=== PATIENT | male | born 1955 | race Caucasian/White ===

== ENCOUNTER 2016-09-12 08:03 | Day surgery (SDC) | payer OTHER ==
[~2016-09-12 08:03] MED LIST: CEFAZOLIN 2 GM/D5W RTU 2 GM/50 ML RTUPB IV PRN; LACTATED RINGERS 1000 ML IV PRN; LIDOCAINE 0.5% INJ-PF (5 MG/ML) 50 ML SDV SUBCUT PRN
[2016-09-12] MEDS ORDERED: BUPIVACAINE HCL 0.25 % INJ/PF (2.5 MG/1 ML) 30 ML VIAL ONE (09:17)
[2016-09-12] MEDS ORDERED: FENTANYL CITRATE INJ/PF 250 MCG/5 ML AMPULE ONE (10:18)
[2016-09-12] MEDS ORDERED: PROPOFOL INJ 200 MG/20 ML VIAL IV ONE ×2 (10:18→13:26)
[2016-09-12] MEDS ORDERED: MIDAZOLAM 2 MG/2 ML INJ ONE (10:18)
[2016-09-12] MEDS ORDERED: MORPHINE SULFATE 10 MG/ML INJ IV PRN ×2 (10:58→11:58)
[2016-09-12] MEDS ORDERED: PROMETHAZINE HCL INJ 25 MG/1 ML VIAL IV PRN ×2 (10:58)
[2016-09-12] MEDS ORDERED: OXYCODONE-ACETAMINOPHEN 5-325 MG TABLET PO PRN ×2 (10:58)
[2016-09-12] MEDS ORDERED: DIPHENHYDRAMINE HCL 50 MG/ML VIAL IV PRN (10:58)
[2016-09-12] MEDS ORDERED: MEPERIDINE HCL/PF INJ 25 MG/1 ML DISP.SYRIN IV PRN (10:58)
[2016-09-12] MEDS ORDERED: FENTANYL CITRATE INJ/PF 100 MCG/2 ML AMPUL IV PRN ×3 (10:58)
[2016-09-12] MEDS: FENTANYL CITRATE INJ/PF 100 MCG/2 ML AMPUL ONE ×2 (11:50→11:55)
[2016-09-12] MEDS ORDERED: HYDROCODONE/ACETAMINOPHEN 5-325 MG TABLET PO PRN (11:58)
[2016-09-12] MEDS ORDERED: ONDANSETRON HCL INJ/PF 4 MG/2 ML SDV IV PRN (11:59)
[2016-09-12] MEDS ORDERED: MORPHINE SULFATE 10 MG/ML INJ ONE (12:09)
--- NOTE | 2016-09-12 12:47 | OPERATIVE REPORT E ---
Operative Report NAME: AMBER JAFFE : 1955 AGE: 61Y DATE OF SURGERY: 09/12/2016 ROOM: PREOPERATIVE DIAGNOSIS: Symptomatic cholelithiasis. POSTOPERATIVE DIAGNOSIS: Symptomatic cholelithiasis. PROCEDURE: Laparoscopic cholecystectomy. SURGEON: DAVID COURTNEY M.D. UPHOLSTERY BUNDLER: Luis ANESTHESIA: General endotracheal. FLUIDS: 1 L of crystalloid. BLOOD LOSS: 5 mL. COMPLICATIONS: None. INDICATIONS FOR OPERATION: The patient is a 61-year-old who presented with symptomatic cholelithiasis, who was scheduled for elective cholecystectomy. PROCEDURE NOTE: Under general anesthesia in the supine position, the patient's abdomen was clipped and sterile prepped and draped with Chloraprep in the usual fashion. A timeout was done. The skin below the umbilicus was then infiltrated with 0.25% Marcaine and a vertical incision was made below the umbilicus with the scalpel. The incision was carried down to the anterior fascia. The anterior fascia was then sutured on either side of the midline with 0 Vicryl sutures and the fascia was divided and the peritoneal cavity was entered under direct vision and a 1 cm Teo trocar was inserted. The 5 mm trocars were inserted in the right upper quadrant x2 and in the epigastrium. The patient was then placed in a reverse Trendelenburg left-side position and the gallbladder was grasped at the fundus and infundibulum. The gallbladder looked to be, for the most part, normal. Except for the presence of gallstones, there was no evidence of any inflammation. The infundibulum of the gallbladder was dissected with a combination of [place]'s and L-hook dissection. The cystic duct was small in nature and was identified tracking directly into the gallbladder where it was clipped x2 proximally, once distally, and transected with luca. The artery was found posterior to the duct and this again was clipped x2 proximally, once distally, and transected with luca. The gallbladder was delivered from the liver. There was minimal tearing of the liver, which was where the bleeding was controlled with Bovie. A small rent was made in the posterior gallbladder about the mid portion with some leakage of bowel, but no loss of stones. The gallbladder was eventually dissected using the L-hook with Bovie from the liver and placed in a retrieval bag and delivered through the umbilical port. Irrigation was performed with 2 L, such that during the irrigation of the second half liter all the air fluent was clear and all the gross bowel had been removed from the abdominal cavity. The umbilical fascia was closed with 2 interrupted 0 Vicryls. The skin was closed with interrupted subcuticular Monocryl. Steri-Strips and dressing was applied. The patient tolerated the procedure well and was taken to the recovery room awake in stable condition. Needle and sponge counts were correct. DICTATING PHYSICIAN: DAVID COURTNEY M.D. [id number] PHY#: [id number] ID: [id number] JOB#: [id number] ACCT: [id number] cc:DAVID COURTNEY M.D. >
[2016-09-12 13:55] VITALS: BP 124/82
[2016-09-12] MEDS ORDERED: NEOSTIGMINE METHYLSULFATE 10 MG/10 ML VIAL ONE (14:12)
[2016-09-12] MEDS ORDERED: LIDOCAINE 2% INJ-PF (20 MG/ML) 10 ML AMPUL ONE (14:12)
[2016-09-12] MEDS ORDERED: VECURONIUM BROMIDE INJ 10 MG VIAL IV ONE (14:12)
[2016-09-12] MEDS ORDERED: METOCLOPRAMIDE HCL INJ/PF 10 MG/2 ML SDV ONE (14:12)
[2016-09-12] MEDS ORDERED: SUCCINYLCHOLINE CHLORIDE INJ 200 MG/10 ML VIAL ONE (14:12)
[2016-09-12] MEDS ORDERED: ONDANSETRON HCL INJ/PF 4 MG/2 ML SDV ONE (14:12)
[2016-09-12] MEDS ORDERED: GLYCOPYRROLATE INJ 0.4 MG/2 ML VIAL ONE (14:12)
== END 2016-09-12 13:50 | disposition home or self-care (01) ==
LOC: OROUT 08:03
PROVIDERS: ATTEND Surgery
PROC: 0FT44ZZ Resection of Gallbladder, Percutaneous Endoscopic Approach (ICD-10-PCS; principal; 2016-09-12 10:30)
DX: K80.10 Calculus of gallbladder with chronic cholecystitis without obstruction (principal); E11.65 Type 2 diabetes mellitus with hyperglycemia; I10 Essential (primary) hypertension; N40.0 Benign prostatic hyperplasia without lower urinary tract symptoms; E78.5 Hyperlipidemia, unspecified; F17.210 Nicotine dependence, cigarettes, uncomplicated; E66.3 Overweight; Z68.29 Body mass index [BMI] 29.0-29.9, adult; Z79.82 Long term (current) use of aspirin; Z79.899 Other long term (current) drug therapy; Z79.84 Long term (current) use of oral hypoglycemic drugs; Z91.040 Latex allergy status
CPT/HCPCS: 82962; 88304 ×2; 47562; J2250; J3010 ×2; J3490 ×2; J2765; J2270; J0330; J2405; J2704; J0690; 790